=== PATIENT | female | born 1990 | race Caucasian/White ===

== ENCOUNTER 2017-09-01 18:47 | Observation (INO) | payer OTHER ==
[2017-09-01] MEDS ORDERED: Dexamethasone IV* 4 MG/ML 1 ML (4 MG) IV SLOW PU ONE (21:49)
[2017-09-01 22:08] LABS: Hematocrit 41 % (35-47); Hemoglobin 14.2 g/dl (12.0-16.0); Mean Corpuscular HGB Conc 34 g/dl (31-36); Mean Corpuscular Hemoglobin 32 pg (27-31); Mean Corpuscular Volume 94 fL (80-97); Mean Platelet Volume 9 um3 (7.4-10.4); Red Blood Count 4.41 10^6/ul (4.0-5.4); Red Cell Distribution Width 12 % (10.5-15); White Blood Count 10.5 10^3/ul (3.5-10.8)
[2017-09-01 22:23] LABS: ALT 9 U/L (7-52); AST 18 U/L (13-39); Albumin 4.7 g/dL (3.2-5.2); Alkaline Phosphatase 52 U/L (34-104); Anion Gap 8 mmol/L (2-11); BUN/Creatinine Ratio 21.2 (8-20); Blood Urea Nitrogen 18 mg/dL (6-24); C Reactive Protein < 1.00 mg/L (< 5.00); CO2 Carbon Dioxide 23 mmol/L (22-32); Chloride 104 mmol/L (101-111); EGFR African American 102.4 (>60); EGFR Non-African American 79.6 (>60); Globulin 3.6 g/dL (2-4); Glucose 104 mg/dL (70-100); Potassium 3.8 mmol/L (3.5-5.0); Sodium 135 mmol/L (133-145); Total Protein 8.3 g/dL (6.4-8.9)
[2017-09-01] MEDS ORDERED: Acetaminophen TAB* 325 MG PO PRN (22:49)
[2017-09-01] MEDS ORDERED: Ondansetron INJ* 2 MG/ML VIAL IV PRN (22:49)
[2017-09-01] MEDS ORDERED: Melatonin (NF) 3 MG TAB PO PRN (22:49)
--- NOTE | 2017-09-01 23:18 | ED ---
Crow Bashir Alfonso, scribed for Mark Birmingham MD on 09/01/17 at 2215 . Complex/Multi-Sys Presentation - HPI Summary HPI Summary: This patient is a 27 year old F presenting to [facility] referred from [facility] due to MRI results obtained earlier today. The MRI Brain reveals, per radiologist, 1. THERE IS AN APPROXIMATELY 4.1 CM EXTRA-AXIAL MASS ALONG THE RIGHT ANTERIOR PARIETAL LOBE MEDIALLY WITH MASS EFFECT ON THE RIGHT POSTERIOR FRONTAL LOBE AND ANTERIOR PARIETAL LOBE AND ASSOCIATED VASOGENIC EDEMA. 2. THERE IS MINIMAL SUBFALCINE SHIFT TO THE LEFT. 3. THE DIFFERENTIAL INCLUDES MENINGIOMA, INCLUDING AGGRESSIVE OR INVASIVE MENINGIOMA GIVEN THE ASSOCIATED VASOGENIC EDEMA. THE DIFFERENTIAL ALSO INCLUDES HEMANGIOPERICYTOMA OR DURAL BASED METASTATIC DISEASE, INCLUDING LYMPHOMA. 4. THERE IS ABNORMAL MARROW SIGNAL WITHIN THE SKULL OVERLYING THE MASS WHICH MAY INDICATE INTRAOSSEOUS EXTENSION. The patient rates the pain 0/10 in severity. Symptoms alleviated by nothing. Patient reports intermittent left handed numbness 2 to 3 times a week, and a 10 minute episode of LUE weakness. Patient denies YUSUF. Additionally, the patient reportedly runs 5 km every day. - History Of Current Complaint Chief Complaint: EDNeurologicalDeficit Time Seen by Provider: 09/01/17 21:24 Hx Obtained From: Patient, Medical Records Onset/Duration: Still Present Timing: Intermittent, Lasting: Alleviating Factor(s): nothing Associated Signs And Symptoms: Positive: Other - reports intermittent left handed numbness 2 to 3 times a week, and a 10 minute episode of LUE weakness. Patient denies YUSUF - Allergies/Home Medications Allergies/Adverse Reactions: Allergies Allergy/AdvReac Type Severity Reaction Status Date / Time No Known Allergies Allergy Verified 08/29/17 12:29 PMH/Surg Hx/FS Hx/Imm Hx Endocrine/Hematology History: Denies: Hx Diabetes Cardiovascular History: Denies: Hx Hypertension, Hx Pacemaker/ICD History: Denies: Hx Dialysis, Hx Renal Disease Sensory History: Denies: Hx Hearing Aid Psychiatric History: Denies: Hx Panic Disorder - Immunization History Date of Tetanus Vaccine: utd Date of Influenza Vaccine: none Infectious Disease History: No Infectious Disease History: Denies: Traveled Outside the [place] in Last 30 Days - Family History Known Family History: Negative: Cardiac Disease, Diabetes - Social History Occupation: Student Alcohol Use: None Substance Use Type: Reports: None Smoking Status (MU): Never Smoked Tobacco Review of Systems Negative: Fever Neurological: Other - MRI finding, intermittent left handed numbness 2 to 3 times a week, and a 10 minute episode of LUE weakness. Patient denies YUSUF All Other Systems Reviewed And Are Negative: Yes Physical Exam - Summary Physical Exam Summary: Appearance: Well-appearing, no pain distress Skin: Warm, dry, color reflects adequate perfusion Head/face: Nml head/face Eyes: Nml eyes ENT: Nml ENT Neck: Supple, non-tender Respiratory: CTA, breath sound present Cardiovascular: RRR Abdomen: Abd soft, non-tender, Bowel: Bowel sounds present Musculoskeletal: Nml musculoskeletal Neurological: Nml neuro, sensory/motor intact, A&Ox3, CN Intact II-III Psychiatric: Nml psychiatric, affect/mood appropriate Triage Information Reviewed: Yes Vital Signs On Initial Exam: Initial Vitals Temp Pulse Resp BP Pulse Ox 98.3 F 108 14 141/89 100 09/01/17 19:04 09/01/17 19:04 09/01/17 19:04 09/01/17 19:04 09/01/17 19:04 Vital Signs Reviewed: Yes - Nataliya Coma Scale Coma Scale Total: 15 Diagnostics - Vital Signs Vital Signs Temp Pulse Resp BP Pulse Ox 09/01/17 19:04 98.3 F 108 14 141/89 100 - Laboratory Lab Results: Lab Results 09/01/17 09/01/17 09/01/17 Range/Units 22:02 22:02 22:02 WBC 10.5 (3.5-10.8) 10^3/ul RBC 4.41 (4.0-5.4) 10^6/ul Hgb 14.2 (12.0-16.0) g/dl Hct 41 (35-47) % MCV 94 (80-97) fL MCH 32 H (27-31) pg MCHC 34 (31-36) g/dl RDW 12 (10.5-15) % Plt Count 228 (150-450) 10^3/ul MPV 9 (7.4-10.4) um3 Neut % (Auto) 80.2 (38-83) % Lymph % (Auto) 13.5 L (25-47) % Surry % (Auto) 4.7 (1-9) % Eos % (Auto) 0.9 (0-6) % Baso % (Auto) 0.7 (0-2) % Absolute Neuts (auto) 8.4 H (1.5-7.7) 10^3/ul Absolute Lymphs (auto) 1.4 (1.0-4.8) 10^3/ul Absolute Monos (auto) 0.5 (0-0.8) 10^3/ul Absolute Eos (auto) 0.1 (0-0.6) 10^3/ul Absolute Basos (auto) 0.1 (0-0.2) 10^3/ul Absolute Nucleated RBC 0.01 10^3/ul Nucleated RBC % 0.1 INR (Anticoag Therapy) 0.94 (0.89-1.11) Sodium 135 (133-145) mmol/L Potassium 3.8 (3.5-5.0) mmol/L Chloride 104 (101-111) mmol/L Carbon Dioxide 23 (22-32) mmol/L Anion Gap 8 (2-11) mmol/L BUN 18 (6-24) mg/dL Creatinine 0.85 (0.51-0.95) mg/dL Est GFR ( Amer) 102.4 (>60) Est GFR (Non-Af Amer) 79.6 (>60) BUN/Creatinine Ratio 21.2 H (8-20) Glucose 104 H (70-100) mg/dL Calcium 10.0 (8.6-10.3) mg/dL Total Bilirubin 0.70 (0.2-1.0) mg/dL AST 18 (13-39) U/L ALT 9 (7-52) U/L Alkaline Phosphatase 52 (34-104) U/L C-Reactive Protein < 1.00 (< 5.00) mg/L Total Protein 8.3 (6.4-8.9) g/dL Albumin 4.7 (3.2-5.2) g/dL Globulin 3.6 (2-4) g/dL Albumin/Globulin Ratio 1.3 (1-3) Result Diagrams: 09/01/17 22:02 09/01/17 22:02 Lab Statement: Any lab studies that have been ordered have been reviewed, and results considered in the medical decision making process. Complex Multi-Symp Course/Dx Course Of Treatment: Ms. Eavns has been having some weakness/coordination problems with her left hand intermittently for quite some time. An MRI revealed a mass and she was sent over to the ED. Dr. Ring recommended that she get decadron and oncology will consult. - Diagnoses Provider Diagnoses: Intracerebral mass - Physician Notifications Discussed Care Of Patient With: Oscar Driscoll Time Discussed With Above Provider: 21:41 Instructed by Provider To: Other - Consulted Dr. Driscoll (oncologist) regarding the patient's case and plan. He states emergent surgery is not indicated at this moment. Consulted Dr. Li (hospitalist) at 2220 who agrees to admit. Discharge - Discharge Plan Condition: Stable Disposition: ADMITTED TO [facility] The documentation as recorded by the Crow hein Alfonso accurately reflects the service I personally performed and the decisions made by me, Mark Birmingham MD.
--- NOTE | 2017-09-02 03:50 | HP ---
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 The spells typically occur 1-3x/week and each last ~10minutes before spontaneously resolving. Spells typically involve the LLE in isolation or combination with the L torso &/or LUE. She never recalls the L face/head being involved. She has made appointment for evaluation in the past, but as the symptom resolved had cancelled them. Monday a week ago she had a spell for the first time associated with L hand/wrist weakness again of brief duration, but prompting her to be evaluated. She was seen at [facility] Aug 23 and an outpatient MRI arranged which was done today revealing a 4cm L meningeal-based appearing mass with overlying skull and edema of the underlying cortex. Yovani Ring MD was consulted recommending observation, but no neurosurgical consult as no emergent surgery is indicated. PMedHx denies Medications denies Allergies No Known Allergies Allergy (Verified 08/29/17 12:29) PSurgHx denies SocHx: no tobacco, alcohol, or recreational drugs; lives alone in an apartment; [employer] student, parents live in [place]; full code status FamHx: Mother: alive at 56, healthy; Father: alive at 61, healthy; no sibilings ROS: as above, otherwise reviewed and all were negative vitals: Vital Signs Temp 36.8 C 09/01/17 23:11 Pulse 81 09/01/17 23:11 Resp 20 09/01/17 23:11 BP 150/80 09/01/17 23:11 Pulse Ox 100 09/01/17 23:11 Intake & Output 09/01/17 09/01/17 09/02/17 11:59 23:59 11:59 Weight 52.208 kg Constitutional: NAD, normally developed, well-nourished female HEENM: atraumatic; sclera/conjunctiva: anicteric/clear; blephara: normal; fundi : no papilledema; hearing: clinically intact; oropharynx: clear, mucosa moist Neck: soft tissue: non-tender; thyroid: normal Pulmonary: clear to auscultation bilaterally, good aeration, no accessory muscle use CV: RR/RR, normal S1S2, no carotid bruit, no jugular venous distention, 2+ B DP/ PT, no edema Abdominal: soft, non-distended, non-tender, no rebound/guarding/rigidity, normoactive bowel sounds, no hepatosplenomegaly or masses, no costovertebral angle tenderness Musculoskeletal: general: grossly intact; gait: stable Integumental: normal appearance and texture of exposed skin Neurological cranial nerves II: visual galarza intact III/IV/: symmetric light reflex, EOMI/PERRLA V: intact facial sensation & mastication VII: intact facial symmetry VIII: hearing clinically intact IX/X: symmetric palatal motion, no dysarthria XII: midline tongue protrusion, normal voice articulation motor: R-handed LUE: 4+/5 proximally, distally, & peoplesoft administrator strength RUE: 4+/5 proximally, distally, & peoplesoft administrator strength LLE: 4+/5 proximally & distally RLE: 4+/5 proximally & distally coordination finger/nose: intact B heal/dick: intact B dysdiadochokinesia: none sensory crude touch: intact globally vibration: intact globally DTRs biceps: 2+, brisk B triceps: 2+, brisk B brachioradialis: 2+, brisk B patellar: 2+, brisk B Achilles: 1+ B Psychiatric orientation: AA&O to PPS affect: anxious mood: pleasant eye contact: good content: reliable responses: timely insight: good Testing: Lab Results 09/01/17 09/01/17 09/01/17 Range/Units 22:02 22:02 22:02 WBC 10.5 (3.5-10.8) 10^3/ul RBC 4.41 (4.0-5.4) 10^6/ul Hgb 14.2 (12.0-16.0) g/dl Hct 41 (35-47) % MCV 94 (80-97) fL MCH 32 H (27-31) pg MCHC 34 (31-36) g/dl RDW 12 (10.5-15) % Plt Count 228 (150-450) 10^3/ul MPV 9 (7.4-10.4) um3 Neut % (Auto) 80.2 (38-83) % Lymph % (Auto) 13.5 L (25-47) % Christian % (Auto) 4.7 (1-9) % Eos % (Auto) 0.9 (0-6) % Baso % (Auto) 0.7 (0-2) % Absolute Neuts (auto) 8.4 H (1.5-7.7) 10^3/ul Absolute Lymphs (auto) 1.4 (1.0-4.8) 10^3/ul Absolute Monos (auto) 0.5 (0-0.8) 10^3/ul Absolute Eos (auto) 0.1 (0-0.6) 10^3/ul Absolute Basos (auto) 0.1 (0-0.2) 10^3/ul Absolute Nucleated RBC 0.01 10^3/ul Nucleated RBC % 0.1 INR (Anticoag Therapy) 0.94 (0.89-1.11) Sodium 135 (133-145) mmol/L Potassium 3.8 (3.5-5.0) mmol/L Chloride 104 (101-111) mmol/L Carbon Dioxide 23 (22-32) mmol/L Anion Gap 8 (2-11) mmol/L BUN 18 (6-24) mg/dL Creatinine 0.85 (0.51-0.95) mg/dL Est GFR ( Amer) 102.4 (>60) Est GFR (Non-Af Amer) 79.6 (>60) BUN/Creatinine Ratio 21.2 H (8-20) Glucose 104 H (70-100) mg/dL Calcium 10.0 (8.6-10.3) mg/dL Total Bilirubin 0.70 (0.2-1.0) mg/dL AST 18 (13-39) U/L ALT 9 (7-52) U/L Alkaline Phosphatase 52 (34-104) U/L C-Reactive Protein < 1.00 (< 5.00) mg/L Total Protein 8.3 (6.4-8.9) g/dL Albumin 4.7 (3.2-5.2) g/dL Globulin 3.6 (2-4) g/dL Albumin/Globulin Ratio 1.3 (1-3) MRI brain W/WO, personally reviewed: IMPRESSION: 1. THERE IS AN APPROXIMATELY 4.1 CM EXTRA-AXIAL MASS ALONG THE RIGHT ANTERIOR PARIETAL LOBE MEDIALLY WITH MASS EFFECT ON THE RIGHT POSTERIOR FRONTAL LOBE AND ANTERIOR PARIETAL LOBE AND ASSOCIATED VASOGENIC EDEMA. 2. THERE IS MINIMAL SUBFALCINE SHIFT TO THE LEFT. 3. THE DIFFERENTIAL INCLUDES MENINGIOMA, INCLUDING AGGRESSIVE OR INVASIVE MENINGIOMA GIVEN THE ASSOCIATED VASOGENIC EDEMA. THE DIFFERENTIAL ALSO INCLUDES HEMANGIOPERICYTOMA OR DURAL BASED METASTATIC DISEASE, INCLUDING LYMPHOMA. 4. THERE IS ABNORMAL MARROW SIGNAL WITHIN THE SKULL OVERLYING THE MASS WHICH MAY INDICATE INTRAOSSEOUS EXTENSION. Impression: 27F presenting with ~18months of intermittent migratory L-sided N/T with single episode last week associated with LUE weakness found to have a 4.1cm dural based mass along the R anterior parietal lobe medially with associated vasogenic edema and abnormal overlying marrow signal DIAGNOSIS & PLAN Primary brain mass, new diagnosis : admitted to the service of Yovani Baptiste MD oncology : 6mg dexamethasone IV Q12H : supportive care Admission Rational: new diagnosis of large dural brain mass being observed for expedited evaluation and management decision making DVTp: SCDs while in bed Code Status: full
[2017-09-02] MEDS ORDERED: Dexamethasone IV* 4 MG/ML 1 ML (4 MG) IV SLOW PU SCH (10:00)
[2017-09-02 12:59] VITALS: BP 116/57
--- NOTE | 2017-09-02 18:46 | CONS ---
AMENDED REPORT NOW INCLUDES DATE OF CONSULT - ESIGNED BEFORE ADJUSTMENT CONSULTATION REPORT: DATE OF CONSULT: 09/02/17 REASON FOR CONSULT: [employer] ARCHITECT lesion. IDENTIFICATION: A 27-year-old female, who presents with intermittent left- sided numbness. 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 She first developed numbness and tingling in her left foot approximately 18 months ago. She would get 1 to 3 episodes per week, but then could go several weeks without any episodes. An episode lasted approximately 10 minutes. Symptoms first occurred after she tripped and sprained her ankle and she thought it was musculoskeletal complaint. Overtime, it went from numbness in her ankle to numbness in her leg as well, still episodes lasting 10 minutes 1 to 3 times per week. Last Monday, she had another episode, but this time also had numbness in her hand. This prompted her to be seen at [facility]. An MRI was ordered, and then she was told to go to the emergency room after the MRI was read. She has had no episodes of numbness or tingling over the last day and she is asymptomatic at this time. She also reports some tenderness in her calf, which she has attributed to running as well. She has some intermittent stomach pain after eating. No fevers or chills. No other focal neurologic symptoms. No seizure activity. She is mentally functioning well and continues her graduate studies. PAST MEDICAL HISTORY: None except for swollen ankle. PAST SURGICAL HISTORY: None. MEDICATIONS: None. ALLERGIES: None. FAMILY HISTORY: Both parents are alive. Mother is 56, father is 61 and healthy. 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 She does not smoke, does not drink. Single. No children. Her parents are in [place] and she would like to have a conference call with them before having major surgery. REVIEW OF SYSTEMS: A 15-point review as above otherwise negative. PHYSICAL EXAM: Temperature 97.6, pulse 72, respirations 18, BP 121/77. HEENT: Mucosa moist. No lesions. No lymphadenopathy. Lungs: Clear. Heart: Regular rhythm, S1, S2. No murmurs, rubs, gallops. Abdomen: Nontender, nondistended. No hepatosplenomegaly. Extremities: No clubbing, cyanosis, or edema. A little bit of tenderness in left calf to palpation. Neurologic: She is fully intact, CN II through XII, strength, coordination, and rapid movement. Did not do a detailed sensory exam. DIAGNOSTIC STUDIES/LAB DATA: Labs were essentially unremarkable. MRI shows an extra axial mass in the right anterior parietal lobe homogenously enhancing and lobulated and measures up to 4.1 cm. On the sagittal images, it is clearly coming off the meninges and is causing displacement of the parenchyma. There is vasogenic edema and a slight shift. Radiographic differential was meningioma as most likely, symptoms of aggressive phenotype, hemangiopericytoma, and other dural based disease is possible as is lymphoma. Question of invasion of the bone on the MRI. ASSESSMENT AND PLAN: A 27-year-old female presents with 18 months of intermittent tingling on the left side and is found to have a large mass on MRI. It seems most likely a meningioma, but differential is broader and there are concerns that this could have aggressive features. Case was reviewed with Dr. Fermin. It is appropriate for her to be discharged from the hospital today and he will see her in clinic on Monday morning. She will need surgery at a larger hospital where they can do conscious monitoring during resection. We will plan on continuing her on the dexamethasone 4 mg twice a day. This was discussed with the patient. If she has any more difficulties over the weekend, she should call our number and she can call anytime with additional questions or concerns. If calf pain at rest or edema in ankle, US for DVT. I will plan on following her up in clinic after she sees Neurosurgery. [id number]/[facility] #: [id number] ORIGINAL ESIGN DATE/TIME: 09/03/17 0746 TALYA
--- NOTE | 2017-09-02 22:54 | DS ---
DISCHARGE SUMMARY: ADDENDUM TO HISTORY AND PHYSICAL: The patient being discharged from observation status. Came in overnight and did well. No additional neurologic events over the last 8 hours. She is now on dexamethasone. MRI was reviewed with Neurosurgery and she will be discharged home today with rohini cheung Monday morning. I had a lengthy discussion about her likely diagnosis of meningioma and the n eed for intervention. We will follow up with her as well after she is seen by Neurosurgery. DISCHARGE MEDICATIONS: Dexamethasone 4 mg p.o. b.i.d. ACTIVITIES: As tolerated and call our office with any additional concerns. [id number]/[facility] #: [id number]
== END 2017-09-02 14:00 | disposition home or self-care (01) ==
LOC: ED 18:47 → MED 22:42
PROVIDERS: ADMIT Hospitalist; ATTEND Internal Medicine Hematology & Oncology
DX: G93.89 Other specified disorders of brain (principal); R20.0 Anesthesia of skin; R53.1 Weakness
CPT/HCPCS: 36415; 80053; 85025; 85610; 86140; 96374; 96376; 99223; 99283; G0378; J1100